=== PATIENT | male | born 2000 | race African-American/Black ===

== ENCOUNTER 2020-07-07 00:41 | Emergency (ER) | payer MEDICAID, OTHER ==
[2020-07-07 01:49] LABS: Bilirubin Neg (Negative); Blood, Urine 250 (Negative); Clarity Cloudy (Clear); Glucose, Urine (Dipstick) Normal (Negative); Ketone, Urine 5 mg/dL (Negative); Leukocyte 100 (Negative); Nitrite Negative (Negative); Protein, Urine (Dipstick) 30 mg/dl (Neg-Trace)
[2020-07-07 02:01] LABS: RBC/HPF Greater than 50 HPF (0-3)
[2020-07-07 02:02] LABS: Bacteria/HPF 2+ HPF (None Seen); Squamous Epithelial 0-3 HPF (0-3); WBC/HPF 21-50 HPF (0-3)
[2020-07-07 02:03] LABS: Mucous/LPF 4+ LPF (<2+)
[2020-07-07] MEDS ORDERED: cefTRIAXone\\ROCEPHIN 500 MG VIAL ONE (02:16)
[2020-07-07] MEDS ORDERED: Sterile Water 10 ML ONE (02:16)
[2020-07-11 23:06] LABS: Chlam.trachomatis by PCR,Urine DETECTED (NotDetected)
== END 2020-07-07 02:37 | disposition home or self-care (01) ==
LOC: CSHERS 00:41
DX: N39.0 Urinary tract infection, site not specified (principal)
CPT/HCPCS: 81003; 81015; 87086; 87491; 87591; 96372; 99283; J0696